=== PATIENT | female | born 1970 | race Caucasian/White ===

== ENCOUNTER → 2025-01-21 | Outpatient (CLI) | payer BC, SELFPAY ==
--- NOTE | 2025-01-21 | XR_ITS ---
EXAMINATIONS: Transforaminal epidural steroid injection, lumbar, single level, includes fluoro guidance, right L4-L5. Fluoroscopy RPO lumbar spine single view INDICATIONS: Right-sided lower back pain years. Exam date and time: January 21, 2025 1422 hours Technique And Findings: Patient is positioned prone on the fluoroscopic table. Oblique fluoroscopic views obtained. Local anesthesia is obtained with 1% lidocaine. 22-gauge needle was advanced toward the 6:00 position of the pedicle. Fluoroscopy is utilized to ensure the needle tip is within the safe triangle After negative aspiration for blood and CSF, 1 cc Kenalog 40 is injected without difficulty. Patient tolerated the procedure well and in satisfactory and stable condition upon completion of procedure. Estimated blood loss 0 cc IMPRESSION: Successful transforaminal epidural steroid injection as described above Fluoroscopy 0.1 minute radiation dose 2.62 milligray 1 spot fluoroscopic lumbar spine film.
--- NOTE | 2025-01-21 | XR_ITS ---
EXAMINATIONS: Transforaminal epidural steroid injection, lumbar, single level, includes fluoro guidance, right L5-S1. Fluoroscopy LPO lumbar spine single view INDICATIONS: Right-sided lower back pain years. Exam date and time: January 21, 2025 1422 hours Technique And Findings: Patient is positioned prone on the fluoroscopic table. Oblique fluoroscopic views obtained. Local anesthesia is obtained with 1% lidocaine. 22-gauge needle was advanced toward the 6:00 position of the pedicle. Fluoroscopy is utilized to ensure the needle tip is within the safe triangle After negative aspiration for blood and CSF, 1 cc Kenalog 40 is injected without difficulty. Patient tolerated the procedure well and in satisfactory and stable condition upon completion of procedure. Estimated blood loss 0 cc IMPRESSION: Successful transforaminal epidural steroid injection as described above Fluoroscopy 0.1 minute radiation dose 2.61 milligray 1 spot fluoroscopic lumbar spine film.
--- NOTE | 2025-01-21 13:00 | XR_ITS ---
EXAMINATIONS: Transforaminal epidural steroid injection, lumbar, single level, includes fluoro guidance, left L5-S1. Fluoroscopy RPO lumbar spine single view. Exam date and time: January 21, 2025 1421 hours INDICATIONS: Left-sided lower back pain years Technique And Findings: Patient is positioned prone on the fluoroscopic table. Oblique fluoroscopic views obtained. Local anesthesia is obtained with 1% lidocaine. 22-gauge needle was advanced toward the 6:00 position of the pedicle. Fluoroscopy is utilized to ensure the needle tip is within the safe triangle After negative aspiration for blood and CSF, 1 cc Kenalog 40 is injected without difficulty. Patient tolerated the procedure well and in satisfactory and stable condition upon completion of procedure. Estimated blood loss 0 cc IMPRESSION: Successful transforaminal epidural steroid injection as described above Fluoroscopy 0.1 minute radiation dose 2.61 milligray 1 spot fluoroscopic lumbar spine film.
--- NOTE | 2025-01-21 13:00 | XR_ITS ---
EXAMINATIONS: Transforaminal epidural steroid injection, lumbar, single level, includes fluoro guidance, left L4-L5. Fluoroscopy RPO lumbar spine single view INDICATIONS: Left-sided lower back pain years. Exam date and time: January 21, 2025 1343 hours Technique And Findings: Patient is positioned prone on the fluoroscopic table. Oblique fluoroscopic views obtained. Local anesthesia is obtained with 1% lidocaine. 22-gauge needle was advanced toward the 6:00 position of the pedicle. Fluoroscopy is utilized to ensure the needle tip is within the safe triangle After negative aspiration for blood and CSF, 1 cc Kenalog 40 is injected without difficulty. Patient tolerated the procedure well and in satisfactory and stable condition upon completion of procedure. Estimated blood loss 0 cc IMPRESSION: Successful transforaminal epidural steroid injection as described above Fluoroscopy 0.1 minute radiation dose 2.63 milligray 1 spot fluoroscopic lumbar spine film.
== END | disposition home or self-care (01) ==
LOC: SIRX 12:53
PROVIDERS: PCP Family Medicine; Referring Provider Psychiatry & Neurology Neurology; Visit Provider Psychiatry & Neurology Neurology
DX: M51.27 Other intervertebral disc displacement, lumbosacral region (principal)
CPT/HCPCS: 64483; 64484 ×2

== ENCOUNTER → 2025-02-17 | Outpatient (CLI) | payer BC, SELFPAY ==
--- NOTE | 2025-02-17 | XR_ITS ---
EXAMINATIONS: Transforaminal epidural steroid injection, lumbar, single level, includes fluoro guidance, right L5-S1. Fluoroscopy LPO lumbar spine single view INDICATIONS: Right lower back pain months. Exam date and time: February 17, 2025 1331 hours Technique And Findings: Patient is positioned prone on the fluoroscopic table. Oblique fluoroscopic views obtained. Local anesthesia is obtained with 1% lidocaine. 22-gauge needle was advanced toward the 6:00 position of the pedicle. Fluoroscopy is utilized to ensure the needle tip is within the safe triangle After negative aspiration for blood and CSF, 1 cc Kenalog 40 is injected without difficulty. Patient tolerated the procedure well and in satisfactory and stable condition upon completion of procedure. Estimated blood loss 0 cc IMPRESSION: Successful transforaminal epidural steroid injection as described above Fluoroscopy 0.1 minute radiation dose 1.40 milligray 1 spot fluoroscopic lumbar spine film.
--- NOTE | 2025-02-17 | XR_ITS ---
EXAMINATIONS: Transforaminal epidural steroid injection, lumbar, single level, includes fluoro guidance, right L4-L5. Fluoroscopy LPO lumbar spine single view INDICATIONS: Right lower back pain months. Exam date and time: February 17, 2025 1330 hours Technique And Findings: Patient is positioned prone on the fluoroscopic table. Oblique fluoroscopic views obtained. Local anesthesia is obtained with 1% lidocaine. 22-gauge needle was advanced toward the 6:00 position of the pedicle. Fluoroscopy is utilized to ensure the needle tip is within the safe triangle After negative aspiration for blood and CSF, 1 cc Kenalog 40 is injected without difficulty. Patient tolerated the procedure well and in satisfactory and stable condition upon completion of procedure. Estimated blood loss 0 cc IMPRESSION: Successful transforaminal epidural steroid injection as described above Fluoroscopy 0.1 minute radiation dose 1.40 milligray 1 spot fluoroscopic lumbar spine film.
--- NOTE | 2025-02-17 13:00 | XR_ITS ---
EXAMINATIONS: Transforaminal epidural steroid injection, lumbar, single level, includes fluoro guidance, L4-L5, left. Fluoroscopy RPO lumbar spine single view INDICATIONS: Left-sided lower back pain years. Exam date and time: February 17, 2025 1301 hours Technique And Findings: Patient is positioned prone on the fluoroscopic table. Oblique fluoroscopic views obtained. Local anesthesia is obtained with 1% lidocaine. 22-gauge needle was advanced toward the 6:00 position of the pedicle. Fluoroscopy is utilized to ensure the needle tip is within the safe triangle After negative aspiration for blood and CSF, 0.5 cc Depo-Medrol is injected without difficulty. Patient tolerated the procedure well and in satisfactory and stable condition upon completion of procedure. Estimated blood loss 0 cc IMPRESSION: Successful transforaminal epidural steroid injection as described above Fluoroscopy 0.1 minute radiation dose 1.40 milligray 1 spot fluoroscopic lumbar spine film.
--- NOTE | 2025-02-17 13:00 | XR_ITS ---
EXAMINATIONS: Transforaminal epidural steroid injection, lumbar, single level, includes fluoro guidance, left L5-S1. Fluoroscopy RPO lumbar spine single view INDICATIONS: Left-sided lower back pain months. Exam date and time: February 17, 2025 1330 hours Technique And Findings: Patient is positioned prone on the fluoroscopic table. Oblique fluoroscopic views obtained. Local anesthesia is obtained with 1% lidocaine. 22-gauge needle was advanced toward the 6:00 position of the pedicle. Fluoroscopy is utilized to ensure the needle tip is within the safe triangle After negative aspiration for blood and CSF, weight 5 cc Depo-Medrol triamcinolone is injected without difficulty. Patient tolerated the procedure well and in satisfactory and stable condition upon completion of procedure. Estimated blood loss 0 cc IMPRESSION: Successful transforaminal epidural steroid injection as described above Fluoroscopy 0.1 minute radiation dose 1.40 milligray 1 spot fluoroscopic lumbar spine film.
== END | disposition home or self-care (01) ==
PROVIDERS: PCP Family Medicine; Referring Provider Psychiatry & Neurology Neurology; Visit Provider Psychiatry & Neurology Neurology
DX: M51.27 Other intervertebral disc displacement, lumbosacral region (principal)
CPT/HCPCS: 64483; 64484 ×2